=== PATIENT | male | born 2000 | race Caucasian/White ===

== ENCOUNTER 2020-05-08 10:25 | Outpatient (REF) | payer BC, SELFPAY ==
[2020-05-10 12:42] LABS: Hepatitis BE Antibody NON-REACTIVE (NON-REACTIVE)
== END 2020-05-08 10:26 | disposition home or self-care (01) ==
LOC: HO.LAB 10:25
PROVIDERS: PCP Physician Assistant; Visit Provider Physician Assistant
DX: Z11.59 Encounter for screening for other viral diseases (principal)
CPT/HCPCS: 36415; 86707

== ENCOUNTER 2020-08-14 13:32 | Outpatient (REF) | payer BC, SELFPAY ==
[2020-08-18 09:46] LABS: Hepatitis BE Antibody NON-REACTIVE (NON-REACTIVE)
== END 2020-08-14 13:33 | disposition home or self-care (01) ==
LOC: HO.LAB 13:32
PROVIDERS: PCP Physician Assistant; Visit Provider Physician Assistant
DX: Z11.59 Encounter for screening for other viral diseases (principal)
CPT/HCPCS: 36415; 86707